=== PATIENT | female | born 1965 | race Caucasian/White ===

== ENCOUNTER → 2021-11-06 | Outpatient (CLI) | payer BC | LOC: LAB 16:54 | PROVIDERS: ATTEND Pediatrics | DX: R79.1 Abnormal coagulation profile (principal) | CPT/HCPCS: 36415; 85379 ==

== ENCOUNTER → 2022-06-30 | Outpatient (CLI) | payer BC ==
[~2022-06-30] MED LIST: LIDOCAINE 1% INJ 10 ML VIAL INJ ONE
--- NOTE | 2022-06-30 16:39 | Diagnostic Imaging Report ---
INDICATION: Abnormal mammogram and left breast ultrasound from outside institution. Patient presents for ultrasound guided biopsy. COMPARISON: Correlation is made with an outside ultrasound from 06/24/2022 and outside screening mammogram from 06/14/2022. FINDINGS: The 10 o'clock location of the left breast was evaluated 6 cm from the nipple. The area of questionable shadowing and irregularity noted on the prior study could not be elucidated today; therefore, ultrasound-guided biopsy could not be performed. No suspicious sonographic finding is identified. In reviewing the patient's outside screening mammogram, there was density in the upper and inner aspect of the left breast. No diagnostic mammography was performed. IMPRESSION: The sonographic abnormality noted on the outside study could not be reproduced today; therefore, tissue sampling was not performed. The patient does have an irregular density noted mammographically in the upper inner aspect of the left breast. Diagnostic mammography would be recommended. If this lesion persists on diagnostic imaging, this would likely be amenable to a stereotactic biopsy approach. ACR BI-RADS Category 0: Incomplete. (Needs additional imaging evaluation). Result letter will be mailed to the patient. Note: At least 10% of breast cancer is not imaged by mammography. Dictated by: Dictated on workstation # [id number]
== END ==
LOC: RAD 12:36
PROVIDERS: ATTEND Pediatrics
DX: R92.2 Inconclusive mammogram (principal)